=== PATIENT | male | born 1980 | race Caucasian/White ===

== ENCOUNTER → 2017-01-01 | Outpatient (CLI) | payer OTHER ==
[2017-01-01 10:10] LABS: Basophils # (A) 0.1 k/uL (0-0.2); Basophils % (A) 1 %; CH 30.8; CHCM 33.2; Eosinophils # (A) 0.3 k/uL (0-0.7); Eosinophils % (A) 3 %; HCT 47.2 % (39.0-53.0); HDW 2.38; HGB 15.7 gm/dL (13.0-17.5); Luc # (Auto) 0.19; Luc % (Auto) 2; Lymphocytes # (A) 2.2 k/uL (1.0-4.8); Lymphocytes % (A) 23 %; MCHC 33.2 g/dL (31.0-37.0); MCV 93.3 fL (80.0-100.0); Monocytes # (A) 0.6 k/uL (0-1.0); Monocytes % (A) 6 %; Neutrophils # (A) 6.3 k/uL (1.3-7.7); Neutrophils % (A) 66 %; RBC 5.06 m/uL (4.30-5.90); RDW 12.5 % (11.5-15.5); WBC 9.6 k/uL (3.8-10.6)
[2017-01-01 10:13] LABS: ALT 40 U/L (21-72); AST 12 U/L (17-59); Alkaline Phosphatase 84 U/L (38-126); Anion Gap 10 mmol/L; Blood Urea Nitrogen 8 mg/dL (9-20); C Reactive Protein 7.7 mg/L (<10.0); Carbon Dioxide 28 mmol/L (22-30); Chloride 107 mmol/L (98-107); Glucose 100 mg/dL (74-99); Iron 87 ug/dL (49-181); Non-African American GFR(MDRD) >60 (>60 ml/min/1.73 sqM); Potassium 3.7 mmol/L (3.5-5.1); Sodium 145 mmol/L (137-145); Total Bilirubin 0.5 mg/dL (0.2-1.3); Total Protein 7.4 g/dL (6.3-8.2)
[2017-01-01 10:21] LABS: % Iron Saturation 29.8 % (20-50); Rheumatoid Factor, Qnt <9 IU/mL (<12); Total Iron Binding Capacity 292 ug/dL (261-462)
[2017-01-01 11:04] LABS: Vitamin B12 420 pg/mL (239-931)
[2017-01-01 11:59] LABS: Erythrocyte Sedimentation Rate 2 mm/hr (0-15)
[2017-01-01 18:01] LABS: ANA w/Reflex to Titer NEGATIVE (NEGATIVE)
== END | disposition home or self-care (01) ==
LOC: LABWHC1 09:40
PROVIDERS: ATTEND Nurse Practitioner Acute Care
DX: E55.9 Vitamin D deficiency, unspecified (principal); M35.3 Polymyalgia rheumatica
CPT/HCPCS: 36415; 80053; 82306; 82607; 82728; 83540; 83550; 84439; 84443; 84481; 85025; 85652; 86038; 86140; 86431

== ENCOUNTER 2017-04-18 20:42 | Emergency (ER) | payer OTHER ==
[2017-04-18 20:49] VITALS: BP 138/80; PULSE 98; RESP 18; TEMP 97.9
[2017-04-18] MEDS ORDERED: MORPHINE SULFATE 10 MG/ML SYRINGE IM STA (21:03)
[2017-04-18] MEDS ORDERED: KETOROLAC 60 MG/2 ML VIAL IM STA (21:03)
[2017-04-18] MEDS ORDERED: ONDANSETRON ODT 4 MG TAB PO STA (21:08)
[2017-04-18] MEDS ORDERED: HYDROcodone/APAP 10-325MG 1 EACH TAB PO ONE (21:43)
--- NOTE | 2017-04-18 21:46 | XR ---
EXAMINATION TYPE: XR finger LT DATE OF EXAM: 04/18/2017 COMPARISON: NONE HISTORY: Injury TECHNIQUE: 3 views FINDINGS: There is a posterior dislocation of the PIP joint of the little finger left hand. I see no fracture. IMPRESSION: Posterior dislocation of the PIP joint of the little finger.
--- NOTE | 2017-04-18 21:58 | XR ---
EXAMINATION TYPE: XR finger LT DATE OF EXAM: 04/18/2017 COMPARISON: Today HISTORY: Post reduction TECHNIQUE: 3 views FINDINGS: There is anatomic reduction of the PIP joint. Lateral view is obscured by the other fingers . I see no fracture line. IMPRESSION: Anatomic reduction. No fracture seen.
--- NOTE | 2017-04-18 22:01 | ED ---
Upper Extremity HPI - General Chief Complaint: Extremity Injury, Upper Stated Complaint: finger injury Time Seen by Provider: 04/18/17 21:00 Source: patient Mode of arrival: ambulatory Limitations: no limitations - History of Present Illness Initial Comments: Patient complains of injury to the left small finger. He was playing sports. He jammed the finger. It is painful. The pain does not radiate anywhere. It is worse with movement. He denies any numbness or tingling. He denies other injuries. - Related Data Home Medications Medication Instructions Recorded Confirmed Butalb/APAP/Caff 50-325-40Mg 1 tab PO BID PRN 04/18/17 04/18/17 [Fioricet 50-325-40] Ergocalciferol [Vitamin D2] 50,000 unit PO ANGEL 04/18/17 04/18/17 HYDROcodone/APAP 7.5-325MG [[place] 1 tab PO BID 04/18/17 04/18/17 7.5-325] Omeprazole Magnesium [Prilosec OTC] 20 mg PO DAILY 04/18/17 04/18/17 Zonisamide [Zonegran] 200 mg PO HS 04/18/17 04/18/17 tiZANidine [Zanaflex] 4 mg PO BID 04/18/17 04/18/17 Allergies Allergy/AdvReac Type Severity Reaction Status Date / Time No Known Allergies Allergy Verified 04/18/17 20:48 Review of Systems ROS Statement: Those systems with pertinent positive or pertinent negative responses have been documented in the HPI. ROS Other: All systems not noted in ROS Statement are negative. Past Medical History Past Medical History: No Reported History Additional Past Medical History / Comment(s): Herniated cervical discs History of Any Multi-Drug Resistant Organisms: None Reported Past Surgical History: No Surgical Hx Reported Past Psychological History: Anxiety Smoking Status: Current every day smoker Past Alcohol Use History: Rare Past Drug Use History: None Reported General Exam Limitations: no limitations General appearance: alert Respiratory exam: Absent: accessory muscle use Extremities exam: Present: other (Tenderness and deformity to the left small finger) Course Vital Signs 04/18/17 20:45 Temperature 97.9 F Pulse Rate 98 Respiratory 18 Rate Blood Pressure 138/80 O2 Sat by Pulse 100 Oximetry Medical Decision Making - Medical Decision Making Patient complains of injury to left small finger. His capillary refill is less than 2 seconds. X-rays reveal a proximal dislocation. Patient was given 60 mg IM Toradol and 6 mg IM morphine. I reduced the finger with no complication. Postprocedure films revealed the year to be in good position. Patient tolerated the procedure well. He remains neurovascularly intact distal to injury site. He is stable for discharge. Disposition Clinical Impression: Finger sprain Disposition: HOME SELF-CARE Condition: Good Instructions: Finger Dislocation (ED) Referrals: Myron Billings MD [Primary Care Provider] - 1-2 days Time of Disposition: 22:01
== END 2017-04-18 22:35 | disposition home or self-care (01) ==
LOC: EC 20:42
DX: S63.617A Unspecified sprain of left little finger, initial encounter (principal); S63.287A Dislocation of proximal interphalangeal joint of left little finger, initial encounter; X58.XXXA Exposure to other specified factors, initial encounter; Y93.67 Activity, basketball
CPT/HCPCS: 99283; 96372 ×2; 73140; J2270; J1885

== ENCOUNTER 2017-11-29 08:20 | Observation (INO) | payer OTHER ==
[2017-11-29] MEDS ORDERED: SODIUM CHLORIDE 0.9% 500 ML IV STA (08:54)
[2017-11-29] MEDS ORDERED: SODIUM CHLORIDE 0.9% 1,000 ML IV STA (08:54)
--- NOTE | 2017-11-29 09:04 | ED ---
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 He does have a headache denies any chest pain feels very weak denies any shortness of breath denies any abdominal pain just generalized weakness affect her symptoms of TIA or CVA - Related Data Home Medications Medication Instructions Recorded Confirmed Butalb/APAP/Caff 50-325-40Mg 1 tab PO BID PRN 04/18/17 11/29/17 [Fioricet 50-325-40] Zonisamide [Zonegran] 200 mg PO HS 04/18/17 11/29/17 tiZANidine [Zanaflex] 4 mg PO BID 04/18/17 11/29/17 Acetaminophen Tab [Tylenol Tab] 500 mg PO Q6H PRN 11/29/17 11/29/17 Ibuprofen [Motrin Ib] 200 mg PO Q6H PRN 11/29/17 11/29/17 Ranitidine HCl [Zantac] 150 mg PO BID 11/29/17 11/29/17 diphenhydrAMINE [Benadryl] 25 mg PO QID PRN 11/29/17 11/29/17 oxyCODONE HCL/ACETAMINOPHEN 1 tab PO BID PRN 11/29/17 11/29/17 [Percocet 7.5-325 mg] Allergies Allergy/AdvReac Type Severity Reaction Status Date / Time No Known Allergies Allergy Verified 11/29/17 08:44 Review of Systems ROS Statement: Those systems with pertinent positive or pertinent negative responses have been documented in the HPI. ROS Other: All systems not noted in ROS Statement are negative. Past Medical History Past Medical History: No Reported History Additional Past Medical History / Comment(s): Herniated cervical discs History of Any Multi-Drug Resistant Organisms: None Reported Past Surgical History: No Surgical Hx Reported Past Psychological History: Anxiety, Depression Smoking Status: Current every day smoker Past Alcohol Use History: Rare Past Drug Use History: None Reported General Exam - General Exam Comments Initial Comments: General: The patient is barely awake, is following the commands look very pale and tired and does close his eyes even during the conversation Skin: Skin is warm and dry and no rashes or lesions are noted. Eye: Pupils are equal, round and reactive to light, extra-ocular movements are intact; there is normal conjunctiva bilaterally. Ears, nose, mouth and throat: His membranes are very dry and looks quite dehydrated Neck: The neck is supple, there is no tenderness Cardiovascular: There is a regular rate and rhythm. No murmur, rub or gallop is appreciated. Respiratory: To auscultation bilateral, crease breath sounds lateral Gastrointestinal: Soft, non-distended, guarding no rebounds positive bowel sounds Back: There is no tenderness to palpation in the midline. There is no obvious deformity. Musculoskeletal: Normal ROM, no tenderness, There is no pedal edema. There is no calf tenderness or swelling. No cords were appreciated. Neurological: CN II-XII intact, Cranial nerves III through XII are intact. There are no obvious motor or sensory deficits. Coordination appears grossly intact. Speech is normal. Psychiatric: Cooperative, does follow commands very slow very lethargic and slow in following the commands Course Vital Signs 11/29/17 11/29/17 11/29/17 08:22 09:19 10:26 Temperature 97.0 F L Pulse Rate 62 73 72 Respiratory 17 18 16 Rate Blood Pressure 117/75 124/88 113/74 O2 Sat by Pulse 100 100 98 Oximetry - Reevaluation(s) Reevaluation #1: Patient is reassessed at 11:15, still he is still very sleepy does wake up and answer questions but the family said it's a significant change in the mental status e CBC, INR, troponin, comprehensive metabolic panel, urinalysis, head CT , chest x-ray are normal and centering is a change in mental status with the normal labs and imaging I plan to admit him for his family agrees with that he be admitted to Dr. Desir service 11/29/17 11:16 EKG Findings - EKG Comments: EKG Findings:: EKG is normal sinus rhythm ventricular rate is 62 MA interval is 162 QRS duration is 86 QT/QTc is 410/416 review of this EKG does not reveal any ST elevation or ST depression Medical Decision Making - Lab Data Result diagrams: 11/29/17 09:15 11/29/17 09:15 Lab Results 11/29/17 11/29/17 11/29/17 Range/Units 09:15 09:15 09:15 WBC 8.6 (3.8-10.6) k/uL RBC 4.99 (4.30-5.90) m/uL Hgb 15.0 (13.0-17.5) gm/dL Hct 46.0 (39.0-53.0) % MCV 92.0 (80.0-100.0) fL MCH 30.1 (25.0-35.0) pg MCHC 32.7 (31.0-37.0) g/dL RDW 12.8 (11.5-15.5) % Plt Count 194 (150-450) k/uL Neutrophils % 58 % Lymphocytes % 30 % Monocytes % 6 % Eosinophils % 4 % Basophils % 1 % Neutrophils # 5.0 (1.3-7.7) k/uL Lymphocytes # 2.6 (1.0-4.8) k/uL Monocytes # 0.5 (0-1.0) k/uL Eosinophils # 0.3 (0-0.7) k/uL Basophils # 0.1 (0-0.2) k/uL PT (9.0-12.0) sec INR (<1.2) APTT (22.0-30.0) sec Sodium 143 (137-145) mmol/L Potassium 3.8 (3.5-5.1) mmol/L Chloride 107 (98-107) mmol/L Carbon Dioxide 28 (22-30) mmol/L Anion Gap 8 mmol/L BUN 13 (9-20) mg/dL Creatinine 0.94 (0.66-1.25) mg/dL Est GFR (MDRD) Af Amer >60 (>60 ml/min/1.73 sqM) Est GFR (MDRD) Non-Af >60 (>60 ml/min/1.73 sqM) Glucose 83 (74-99) mg/dL Plasma Lactic Acid Jeff (0.7-2.0) mmol/L Calcium 9.3 (8.4-10.2) mg/dL Phosphorus 3.6 (2.5-4.5) mg/dL Magnesium 2.2 (1.6-2.3) mg/dL Total Bilirubin 0.2 (0.2-1.3) mg/dL AST 9 L (17-59) U/L ALT 21 (21-72) U/L Alkaline Phosphatase 85 (38-126) U/L Total Creatine Kinase 52 L (55-170) U/L CK-MB (CK-2) 0.5 (0.0-2.4) ng/mL CK-MB (CK-2) Rel Index 1.0 Troponin I <0.012 (0.000-0.034) ng/mL Total Protein 6.3 (6.3-8.2) g/dL Albumin 3.9 (3.5-5.0) g/dL TSH 0.801 (0.465-4.680) mIU/L Urine Color Urine Appearance (Clear) Urine pH (5.0-8.0) Ur Specific [place] (1.001-1.035) Urine Protein (Negative) Urine Glucose (UA) (Negative) Urine Ketones (Negative) Urine Blood (Negative) Urine Nitrite (Negative) Urine Bilirubin (Negative) Urine Urobilinogen (<2.0) mg/dL Ur Leukocyte Esterase (Negative) 11/29/17 11/29/17 11/29/17 Range/Units 09:15 09:15 10:46 WBC (3.8-10.6) k/uL RBC (4.30-5.90) m/uL Hgb (13.0-17.5) gm/dL Hct (39.0-53.0) % MCV (80.0-100.0) fL MCH (25.0-35.0) pg MCHC (31.0-37.0) g/dL RDW (11.5-15.5) % Plt Count (150-450) k/uL Neutrophils % % Lymphocytes % % Monocytes % % Eosinophils % % Basophils % % Neutrophils # (1.3-7.7) k/uL Lymphocytes # (1.0-4.8) k/uL Monocytes # (0-1.0) k/uL Eosinophils # (0-0.7) k/uL Basophils # (0-0.2) k/uL PT 9.8 (9.0-12.0) sec INR 1.0 (<1.2) APTT 24.4 (22.0-30.0) sec Sodium (137-145) mmol/L Potassium (3.5-5.1) mmol/L Chloride (98-107) mmol/L Carbon Dioxide (22-30) mmol/L Anion Gap mmol/L BUN (9-20) mg/dL Creatinine (0.66-1.25) mg/dL Est GFR (MDRD) Af Amer (>60 ml/min/1.73 sqM) Est GFR (MDRD) Non-Af (>60 ml/min/1.73 sqM) Glucose (74-99) mg/dL Plasma Lactic Acid Jeff 0.9 (0.7-2.0) mmol/L Calcium (8.4-10.2) mg/dL Phosphorus (2.5-4.5) mg/dL Magnesium (1.6-2.3) mg/dL Total Bilirubin (0.2-1.3) mg/dL AST (17-59) U/L ALT (21-72) U/L Alkaline Phosphatase (38-126) U/L Total Creatine Kinase (55-170) U/L CK-MB (CK-2) (0.0-2.4) ng/mL CK-MB (CK-2) Rel Index Troponin I (0.000-0.034) ng/mL Total Protein (6.3-8.2) g/dL Albumin (3.5-5.0) g/dL TSH (0.465-4.680) mIU/L Urine Color Yellow Urine Appearance Clear (Clear) Urine pH 6.0 (5.0-8.0) Ur Specific [place] 1.020 (1.001-1.035) Urine Protein Negative (Negative) Urine Glucose (UA) Negative (Negative) Urine Ketones Negative (Negative) Urine Blood Negative (Negative) Urine Nitrite Negative (Negative) Urine Bilirubin Negative (Negative) Urine Urobilinogen <2.0 (<2.0) mg/dL Ur Leukocyte Esterase Negative (Negative) Disposition Clinical Impression: Change in mental status, Lethargy Disposition: ADMITTED IP TO THIS HOSP Condition: Good Referrals: Myron Billings MD [Primary Care Provider] - 1-2 days
[2017-11-29 09:30] LABS: Basophils # (A) 0.1 k/uL (0-0.2); Basophils % (A) 1 %; Eosinophils # (A) 0.3 k/uL (0-0.7); Eosinophils % (A) 4 %; Lymphocytes # (A) 2.6 k/uL (1.0-4.8); Lymphocytes % (A) 30 %; MCH 30.1 pg (25.0-35.0); MCHC 32.7 g/dL (31.0-37.0); Mean Platelet Volume 7.3; Monocytes # (A) 0.5 k/uL (0-1.0); Monocytes % (A) 6 %; Neutrophils % (A) 58 %; Platelet Count 194 k/uL (150-450); RBC 4.99 m/uL (4.30-5.90); RDW 12.8 % (11.5-15.5); WBC 8.6 k/uL (3.8-10.6)
[2017-11-29 09:39] LABS: Partial Thromboplastin Time 24.4 sec (22.0-30.0); Prothrombin Time 9.8 sec (9.0-12.0)
[2017-11-29 09:50] LABS: ALT 21 U/L (21-72); AST 9 U/L (17-59); Albumin 3.9 g/dL (3.5-5.0); Alkaline Phosphatase 85 U/L (38-126); Anion Gap 8 mmol/L; Blood Urea Nitrogen 13 mg/dL (9-20); Calcium 9.3 mg/dL (8.4-10.2); Carbon Dioxide 28 mmol/L (22-30); Chloride 107 mmol/L (98-107); Glucose 83 mg/dL (74-99); Magnesium 2.2 mg/dL (1.6-2.3); Phosphorus 3.6 mg/dL (2.5-4.5); Potassium 3.8 mmol/L (3.5-5.1); Sodium 143 mmol/L (137-145); Total Bilirubin 0.2 mg/dL (0.2-1.3); Total Protein 6.3 g/dL (6.3-8.2)
--- NOTE | 2017-11-29 09:53 | XR ---
EXAMINATION TYPE: XR chest 2V DATE OF EXAM: 11/29/2017 COMPARISON: NONE HISTORY: Chest pain TECHNIQUE: Frontal and lateral views of the chest are obtained. FINDINGS: There is no focal air space opacity. No evidence for pneumothorax. No pleural effusion. The cardiac silhouette size is within normal limits. The osseous structures are grossly intact. IMPRESSION: 1. No acute cardiopulmonary process.
[2017-11-29 10:00] LABS: Creatine Kinase 52 U/L (55-170)
[2017-11-29 10:12] LABS: Creatine Kinase MB 0.5 ng/mL (0.0-2.4); Troponin I <0.012 ng/mL (0.000-0.034)
--- NOTE | 2017-11-29 10:22 | CT ---
EXAMINATION TYPE: CT brain wo con DATE OF EXAM: 11/29/2017 COMPARISON: NONE HISTORY: Right sided weakness and confusion CT DLP: 1090.4 mGycm. Automated Exposure Control for Dose Reduction was Utilized. TECHNIQUE: CT scan of the head is performed without contrast. FINDINGS: There is no acute intracranial hemorrhage, mass effect, or midline shift identified. The ventricles and sulci are within normal limits in size. The globes are intact and the visualized sin uses are clear. IMPRESSION: No acute intracranial hemorrhage, mass effect, or midline shift is seen.
[2017-11-29 11:02] LABS: Appearance,Urine Clear (Clear); Bilirubin,Urine Negative (Negative); Blood,Urine Negative (Negative); Color,Urine Yellow; Glucose,Urine (UA) Negative (Negative); Ketones,Urine Negative (Negative); Leukocyte Esterase,Urine Negative (Negative); Nitrite,Urine Negative (Negative); Protein,Urine Negative (Negative); Urobilinogen,Urine <2.0 mg/dL (<2.0)
[2017-11-29] MEDS ORDERED: NALOXONE 0.4 MG/ML 1 ML VIAL IV PRN (11:21)
[2017-11-29 11:40] LABS: Amphetamine Screen,Urine Not Detected (NotDetected); Barbiturate Screen,Urine Detected (NotDetected); Benzodiazepines Screen,Urine Detected (NotDetected); Cocaine Screen,Urine Not Detected (NotDetected); Methadone Screen, Urine Not Detected (NotDetected); Opiate Screen,Urine Detected (NotDetected); Phencyclidine Screen,Urine Not Detected (NotDetected); Tricyclic Antidepressant,Urine Not Detected (NotDetected); Urn Cannabinoid Scrn Not Detected (NotDetected)
[2017-11-29 11:41] LABS: Oxycodone Screen, Urine Detected (NotDetected)
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
[2017-11-29] MEDS: NICOTINE 21MG/24HR PATCH TRANSDERM SCH (16:15)
[2017-11-29] MEDS ORDERED: ACETAMINOPHEN TAB 500 MG TAB PO PRN (19:57)
[2017-11-29] MEDS ORDERED: IBUPROFEN 200 MG TAB PO PRN (19:57)
[2017-11-29] MEDS ORDERED: BUTALB/APAP/CAFF 50-325-40MG TAB PO PRN (19:57)
[2017-11-29] MEDS: oxyCODONE-APAP 7.5-325MG 1 EACH TAB PO PRN (20:27)
[2017-11-29] MEDS: tiZANidine 4 MG TAB PO SCH (20:28)
[2017-11-29] MEDS: FAMOTIDINE 20 MG TAB PO SCH (20:28)
[2017-11-29] MEDS ORDERED: ZONISAMIDE 100 MG CAP PO SCH (21:00)
[2017-11-30 01:11] VITALS: RESP 16
--- NOTE | 2017-11-30 08:28 | CONS ---
CONSULTATION DATE OF CONSULTATION: 11/29/2017 CHIEF COMPLAINT: Altered mental status. HISTORY OF PRESENT ILLNESS: The patient is a pleasant 37-year-old, male, who is being evaluated today on 11/29/2017 by the neurology service per the request of Dr. Tillman for altered mental status. The patient was brought into [facility] Emergency Room after his significant other noticed him to be less arousable. The patient has a history of chronic pain syndrome including chronic neck pain and shoulder pain. He has history of cervical facet joint arthropathy. He was recently seen in the office for a shoulder injection. The patient is maintained on Percocet 7.5 mg b.i.d. p.r.n. No seizure-like activity was described at home and he did not have any loss of consciousness. In the emergency room, a CT scan of the brain was done, which was normal. A chest x-ray, showed no abnormalities. His CBC, comprehensive metabolic profile, cardiac enzymes and urinalysis were normal. His urine drug screen was positive for oxycodone and barbiturates, which are explained by his home medications, but the test was also positive for opiates and marijuana. The patient denies any marijuana use and denies taking any opiate drugs. The patient was admitted for further workup and management. At the time of my evaluation, he is quite awake and is back to his baseline. He denies any new neurological complaints. PAST MEDICAL HISTORY: Chronic pain syndrome, shoulder arthritis, cervical facet joint arthropathy, depression, anxiety disorder. SOCIAL HISTORY: The patient is a current every day smoker. He denies any drug use. He rarely drinks alcohol. FAMILY HISTORY: Noncontributory. HOME MEDICATIONS: Reviewed in the chart. ALLERGIES: No known drug allergies. REVIEW OF SYSTEMS: As mentioned above and otherwise negative. PHYSICAL EXAM: Vital signs show a temperature of 97, pulse 56, respiration 16, blood pressure 109/64. GENERAL APPEARANCE: The patient is a thin male, who appears to be in no acute distress. HEENT: Normocephalic, atraumatic, exotropia is present in the right eye which is chronic. No facial asymmetry is seen. Neck is supple with no masses felt. CARDIOVASCULAR: Bradycardic rate with normal rhythm. ABDOMEN: Nontender, nondistended. Extremities showed no edema or clubbing. NEUROLOGICAL EXAM: The patient is alert, aware and oriented x3. Speech and language are normal. Strength is full in all 4 extremities, but the left upper extremity exam was slightly limited due to shoulder pain. Sensory exam was normal to light touch in all 4 extremities. No tremors or seizure-like activity is seen. No facial asymmetry is noticed on cranial nerve testing. IMPRESSION: 1. Altered mental status. 2. Toxic encephalopathy. 3. Chronic pain syndrome. RECOMMENDATION: The patient's mental status changes have completely resolved and he is at his baseline at this time. The patient's urine drug screen was not consistent with his prescribed medications although the patient denies using any marijuana and denies taking any opiate drugs. He is on butalbital for headaches as needed and Percocet 7.5 mg b.i.d. p.r.n. for his chronic pain at home. An EEG has been ordered. I will order a serum drug screen to confirm the urine drug screen results. Continue neuro checks. I will continue to follow with you. Further recommendations to follow. Thank you for allowing me to participate in the care of your patient. If you have any questions, please feel free to contact me. KHADIJAH / ADAN: [phone] /
[2017-11-30] MEDS ORDERED: ENOXAPARIN 40 MG/0.4 ML SYRINGE SQ SCH ×2 (09:00)
[2017-11-30] MEDS: oxyCODONE-APAP 7.5-325MG 1 EACH TAB PO PRN (09:02)
[2017-11-30] MEDS: NICOTINE 21MG/24HR PATCH TRANSDERM SCH (09:03)
[2017-11-30] MEDS: FAMOTIDINE 20 MG TAB PO SCH (09:03)
[2017-11-30] MEDS: tiZANidine 4 MG TAB PO SCH (09:03)
[2017-11-30 12:23] VITALS: BP 109/75; PULSE 69; TEMP 98.2
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
--- NOTE | 2017-11-30 15:58 | P.PN ---
Subjective Progress Note Date: 11/30/17 Principal diagnosis: Altered mental status This is a 37-year-old male continuing be evaluated by the neurology service for altered mental status. He was brought to [facility] emergency room after being found quite drowsy by his significant other. He is known to our practice with history of chronic pain syndrome including chronic neck and shoulder pain. His chronic pain medication includes Percocet 7.5/325 mg twice daily as needed. There was no seizure activity noted. There was no loss of consciousness. CT of the brain was done and was normal. His urine drug screen was positive for oxycodone which is consistent with the medication. However was also positive for opiates, which is a separate test from oxycodone. There was also positive for benzodiazepines. Reaction to the previous note it was not positive for marijuana. At the time my evaluation he is sitting up in his bedside dressed in his street clothes waiting for discharge. An EEG has just been performed. He denies any new neurological symptoms. Objective - Vital Signs Vital signs: Vital Signs Temp 98.2 F 11/30/17 12:00 Pulse 69 11/30/17 12:00 Resp 16 11/30/17 12:00 BP 109/75 11/30/17 12:00 Pulse Ox 100 11/30/17 12:00 Intake & Output 11/29/17 11/30/17 11/30/17 18:59 06:59 18:59 Intake Total 2000 500 Balance 2000 500 Weight 83.915 kg Intake: Intake, IV Titration 900 Amount Sodium Chloride 0.9% 1, 900 000 ml @ 100 mls/hr IV . Q10H STA Rx#:[id number] Oral 1100 500 Other: Voiding Method Toilet # Voids 2 2 - Constitutional General appearance: Present: average body habitus, cooperative. Absent: no acute distress - EENT Eyes: Present: abnormal pupil, PERRLA. Absent: ptosis ENT: Present: hearing grossly normal - Neck Neck: Present: normal ROM. Absent: rigidity - Respiratory Respiratory: negative: prolonged expiration, prolonged inspiration - Cardiovascular Rhythm: regular - Gastrointestinal General gastrointestinal: Absent: distended, tenderness - Neurologic Neurologic Comment(s): Patient was awake alert and oriented 3. Speech and language are normal. There is no facial asymmetry. There is no lateralizing weakness. No tremors or seizure-like activities are seen. - Labs CBC & Chem 7: 11/29/17 09:15 11/29/17 09:15 Labs: Microbiology - Last 24 Hours (Table) 11/29/17 09:15 Blood Culture - Preliminary Blood No Growth after 24 hours Assessment and Plan (1) Chronic pain syndrome Current Visit: Yes Status: Chronic Code(s): G89.4 - CHRONIC PAIN SYNDROME SNOMED Code(s): 773251719 (2) Abnormal drug screen Current Visit: Yes Status: Acute Code(s): R89.2 - ABN LEV DRUG/MEDS/BIOL SUBST IN SPECIMENS FROM OTH ORG/TISS SNOMED Code(s): 091405377 (3) Change in mental status Current Visit: Yes Status: Resolved Code(s): R41.82 - ALTERED MENTAL STATUS , UNSPECIFIED SNOMED Code(s): 456723593 (4) Lethargy Current Visit: Yes Status: Resolved Code(s): R53.83 - OTHER FATIGUE SNOMED Code(s): 057104673 Plan: The patient's mental status changes have resolved. His symptoms were likely due to medication overuse. He has been strongly cautioned. We will see him in the office to discuss further treatment plan. At that time we'll go over his EEG results also. Otherwise she is cleared from a neurological standpoint. I have performed a history and physical on the above patient. I have reviewed the above note, and agree.
--- NOTE | 2017-12-05 19:10 | EEG ---
ELECTROENCEPHALOGRAM REPORT DATE OF SERVICE: 11/30/2017 REASON FOR TESTING: Altered mental status. DESCRIPTION OF THE PROCEDURE: This EEG was performed using a 21 channel digital electroencephalograph, following international 10-20 system. DESCRIPTION OF THE RECORDING: From the beginning of the tracing, with patient's eyes closed, the background rhythm was mostly consisting of 9 Hz alpha frequency in the posterior occipital leads. No obvious asymmetry is seen. Occasional movement artifacts are noticed. Hyperventilation was performed with a mild buildup of amplitude seen. No pathological waves were elicited. Photic stimulation was performed with no driving response seen. Again, no pathological waves were elicited. The patient remains awake throughout the tracing. No epileptiform discharges were seen. His EKG lead showed a regular rate and rhythm. INTERPRETATION: This awake EEG can be considered within normal limits. There was no asymmetry seen. No epileptiform discharges were noticed. The absence of epileptiform discharges does not rule out the diagnosis of epilepsy, therefore clinical correlation is recommended. MMODL / IJN: [id number] /
== END 2017-11-30 15:42 | disposition home or self-care (01) ==
LOC: EC 08:20 → 3OBS 11:21
PROVIDERS: ADMIT Internal Medicine Geriatric Medicine; ATTEND Internal Medicine Geriatric Medicine
DX: G92 Toxic encephalopathy (principal); T40.605A Adverse effect of unspecified narcotics, initial encounter; G89.4 Chronic pain syndrome; M54.5 Low back pain; F17.210 Nicotine dependence, cigarettes, uncomplicated; F41.1 Generalized anxiety disorder; F33.9 Major depressive disorder, recurrent, unspecified; K21.9 Gastro-esophageal reflux disease without esophagitis; G43.909 Migraine, unspecified, not intractable, without status migrainosus; M50.20 Other cervical disc displacement, unspecified cervical region; M19.019 Primary osteoarthritis, unspecified shoulder; M25.511 Pain in right shoulder; Z79.899 Other long term (current) drug therapy
CPT/HCPCS: 99285; 96360 ×2; 96361 ×3; 36415; 95819; 93005; 80053; 82550; 82553; 83605; 83735; 84100; 84443; 84484; 85025; 85610; 85730; 81003; 87040; 80307; 80306; 71046; 70450; G0378 ×2; S4990 ×2

== ENCOUNTER → 2018-05-31 | Outpatient (CLI) | payer OTHER ==
--- NOTE | 2018-05-31 16:02 | MR ---
EXAMINATION TYPE: MR lumbar spine wo con DATE OF EXAM: 05/31/2018 COMPARISON: NONE HISTORY: Low back pain TECHNIQUE: T1 and T2 axial and sagittal images of the lumbar spine are submitted. FINDINGS: There is no abnormal signal seen within the visualized spinal cord or paraspinal soft tissu es. At L1-2 there is no disc herniation or canal stenosis. No foraminal encroachment. No degenerative dis c disease. At L2-3 there is no degenerative disc disease, disc herniation, canal stenosis, or foraminal encroach ment. At L3-4 there is mild disc desiccation. There is hypertrophic change of the facets greater on the lef t. There is no foraminal encroachment or canal stenosis. At L4-5 there is no degenerative disc disease, disc herniation or canal stenosis. There is moderate f acet arthropathy. Neural foramina remain patent. At L5-S1 there is no degenerative disc disease, canal stenosis, or focal herniation. No foraminal enc roachment. IMPRESSION: 1. Multilevel facet arthropathy with mild degenerative disc disease L3-L4. No disc herniation, canal stenosis, or foraminal encroachment at any of the visualized levels.
== END | disposition home or self-care (01) ==
LOC: RADMRIMAIN 15:24
PROVIDERS: ATTEND Psychiatry & Neurology Neurology
DX: M51.36 Other intervertebral disc degeneration, lumbar region (principal); M48.8X6 Other specified spondylopathies, lumbar region
CPT/HCPCS: 72148

== ENCOUNTER 2018-08-13 20:47 | Emergency (ER) | payer OTHER ==
[2018-08-13 21:10] VITALS: BP 137/88; PULSE 70; RESP 16; TEMP 98.1
--- NOTE | 2018-08-13 21:51 | XR ---
EXAMINATION TYPE: XR hand complete LT DATE OF EXAM: 08/13/2018 CLINICAL HISTORY: Left hand pain and swelling after falling injury. TECHNIQUE: Frontal, lateral and oblique images of the left hand are obtained. COMPARISON: None. FINDINGS: There is no acute fracture/dislocation evident in the left hand. The joint spaces in the l eft hand appear within normal limits. Sclerotic focus distal ulna favors benign bone island. The over lying soft tissue appears unremarkable. IMPRESSION: There is no acute fracture or dislocation in the left hand.
--- NOTE | 2018-08-13 22:24 | ED ---
Upper Extremity HPI - General Source: patient Mode of arrival: ambulatory Limitations: no limitations <Lisbeth Negrete - Last Filed: 08/13/18 23:30> <Vani Whalen - Last Filed: 08/14/18 03:03> - General Chief Complaint: Extremity Injury, Upper Stated Complaint: left hand injury Time Seen by Provider: 08/13/18 21:47 - History of Present Illness Initial Comments: This a 38, past medical history of previous left hand fracture presents today for chief complaint of left hand pain. Patient states that he was wrestling with his son when he fell on outstretched left hand. Patient was pain in the hand lesion. Patient stable this morning it was swollen bruise. Patient was concerned about fracture presents to emergency department for evaluation. Patient denies any numbness, tingling, loss sensation, head injury, injury to any other extremity. Patient is able to fully range at the wrist. Patient denies any decreased range of motion of the fingers. Patient denies any injury to the forearm, elbow or shoulder of the left upper extremity. Remainder of ROS negative, patient denies any recent fever, chills, shortness of breath, chest pain, back pain, abdominal pain, nausea or vomiting, numbness or tingling , dysuria or hematuria, constipation or diarrhea, headaches or visual changes, or any other complaints. Upon arrival patient appears well. Patient denies taking medication prior to arrival. Patient denies any known ALLERGIES. (Lisbeth Negrete) - Related Data Home Medications Medication Instructions Recorded Confirmed Butalb/APAP/Caff 50-325-40Mg 1 tab PO BID PRN 04/18/17 11/29/17 [Fioricet 50-325-40] Zonisamide [Zonegran] 200 mg PO HS 04/18/17 11/29/17 tiZANidine [Zanaflex] 4 mg PO BID 04/18/17 11/29/17 Acetaminophen Tab [Tylenol] 500 mg PO Q6H PRN 11/29/17 11/29/17 Ibuprofen [Motrin Ib] 200 mg PO Q6H PRN 11/29/17 11/29/17 Ranitidine HCl [Zantac] 150 mg PO BID 11/29/17 11/29/17 oxyCODONE HCL/ACETAMINOPHEN 1 tab PO BID PRN 11/29/17 11/29/17 [Percocet 7.5-325 mg] Allergies Allergy/AdvReac Type Severity Reaction Status Date / Time No Known Allergies Allergy Verified 08/13/18 21:10 Review of Systems ROS Other: All systems not noted in ROS Statement are negative. Constitutional: Denies: fever, chills Eyes: Denies: eye pain ENT: Denies: ear pain, throat pain Respiratory: Denies: cough, dyspnea Cardiovascular: Denies: chest pain, palpitations Endocrine: Denies: fatigue Gastrointestinal: Denies: abdominal pain, nausea, vomiting Genitourinary: Denies: urgency, dysuria Musculoskeletal: Reports: joint swelling (Swelling of the dorsal aspect of the left hand), arthralgia (Pain in the dorsum of the left hand) Skin: Reports: change in color (Bruising of the left hand). Denies: rash, lesions Neurological: Denies: headache, weakness, numbness, paresthesias, confusion, abnormal gait <Lisbeth Negrete L - Last Filed: 08/13/18 23:30> ROS Other: All systems not noted in ROS Statement are negative. <Vani Whalen - Last Filed: 08/14/18 03:03> ROS Statement: Those systems with pertinent positive or pertinent negative responses have been documented in the HPI. Past Medical History Past Medical History: No Reported History Additional Past Medical History / Comment(s): Herniated cervical discs History of Any Multi-Drug Resistant Organisms: None Reported Past Surgical History: No Surgical Hx Reported Additional Past Surgical History / Comment(s): Nerve block cervical spine, lazy eye surgery on the left Past Anesthesia/Blood Transfusion Reactions: Motion Sickness Past Psychological History: Anxiety Smoking Status: Current every day smoker Past Alcohol Use History: Rare Past Drug Use History: None Reported - Past Family History Father Family Medical History: No Reported History Additional Family Medical History / Comment(s): Patient does not know his father. Mother Family Medical History: No Reported History Additional Family Medical History / Comment(s): Mother is alive at age 52 with no major medical problems. Patient has 2 brothers with no major medical problems. Patient does not have any sisters. Patient has one son with no major medical problems. <Lisbeth Negrete - Last Filed: 08/13/18 23:30> General Exam Limitations: no limitations <Lisbeth Negrete - Last Filed: 08/13/18 23:30> <Vani Whalen P - Last Filed: 08/14/18 03:03> - General Exam Comments Initial Comments: General: The patient is awake and alert, in no distress, and does not appear acutely ill. Eye: Pupils are equal, round and reactive to light, extra-ocular movements are intact. No nystagmus. There is normal conjunctiva bilaterally. No signs of icterus. Cardiovascular: There is a regular rate and rhythm. No murmur, rub or gallop is appreciated. Respiratory: Lungs are clear to auscultation, respirations are non-labored, breath sounds are equal. No wheezes, stridor, rales, or rhonchi. Musculoskeletal: There is bruising and swelling of the left hand dorsum. Patient is able to fully range at the MCP, DIP and PIP joints of the left hand at all 5 digits. Patient is able to flex, extend and supinate and pronate at the left wrist without difficulty. Patient does admit to discomfort with range of motion of the hand. Patient admits to pain palpation over the metacarpals. Patient does have mild scaphoid tenderness. Compartments are soft and compressible, capillary refill less than 2 seconds. Sensation intact. Radial and ulnar pulses equal bilaterally 2+. Patient is able to make the okay, fingers, thumbs up and is able to extend the wrist. Ulnar, median and radial nerves intact. Neurological: A&O x 3. CN II-XII intact, There are no obvious motor or sensory deficits. Coordination appears grossly intact. Speech is normal. Skin: Skin is warm and dry and no rashes or lesions are noted. Psychiatric: Cooperative, appropriate mood & affect, normal judgment. (Lisbeth Negrete) Vital Signs 08/13/18 21:07 Temperature 98.1 F Pulse Rate 70 Respiratory 16 Rate Blood Pressure 137/88 O2 Sat by Pulse 99 Oximetry Medical Decision Making <Lisbeth Negrete - Last Filed: 08/13/18 23:30> <Vani Whalen - Last Filed: 08/14/18 03:03> - Medical Decision Making Patient given Toradol for pain management IM. X-rays appear negative for acute fracture of the left hand. Patient neurovascularly intact, compartments soft and compressible. Patient did admit to some scaphoid tenderness, concerning for possible occult fracture. This finding was discussed with patient, I stressed the importance of orthopedic surgery follow-up. Patient was placed in a thumb spica splint. Repeat neurovascular exam intact. At this time feel patient is stable for discharge with use of ibuprofen and Tylenol for pain management at home. Patient understands instruction as well as the importance of orthotics surgery follow-up. Patient was given follow-up with be associated with Dr. Pate. In addition Rice instructions were discussed in detail. Patient verbalized understanding. In addition patient verbalized understanding of return parameters. Case is discussed in detail with who agrees the impression and plan. (Lisbeth Negrete) I was available for consultation in the emergency department. The history and physical exam were done by the midlevel provider. I was consulted for this patient's care. I reviewed the case with the midlevel provider and based on their presentation of the patient, I agree with the assessment, medical decision making and plan of care as documented. (Vani Whalen) Disposition Is patient prescribed a controlled substance at d/c from ED?: No Time of Disposition: 22:23 <Lisbeth Negrete - Last Filed: 08/13/18 23:30> <Vani Whalen - Last Filed: 08/14/18 03:03> Clinical Impression: Sprain of hand, left Disposition: HOME SELF-CARE Condition: Good Instructions: Hand Sprain (ED) Additional Instructions: Please use medication as discussed. Please follow-up with orthopedic surgery in next 1-2 days, to rule out occult scaphoid fracture. Please return to emergency room if the symptoms increase or worsen or for any other concerns. Referrals: Myron Billings MD [Primary Care Provider] - 1-2 days Matt Owens DO [Doctor of Osteopathic Medicine] - 1-2 days
== END 2018-08-13 23:02 | disposition home or self-care (01) ==
LOC: EC 20:47
DX: S63.92XA Sprain of unspecified part of left wrist and hand, initial encounter (principal); M50.20 Other cervical disc displacement, unspecified cervical region; F17.200 Nicotine dependence, unspecified, uncomplicated; Z79.899 Other long term (current) drug therapy; W18.39XA Other fall on same level, initial encounter; Y93.72 Activity, wrestling
CPT/HCPCS: 29125; 99283

== ENCOUNTER 2020-05-28 23:09 | Emergency (ER) | payer OTHER ==
[2020-05-29] MEDS ORDERED: CLINDAMYCIN 150 MG CAP PO STA (00:04)
[2020-05-29] MEDS ORDERED: ACET/COD 300 MG/30 MG STARTER PACK 6 TAB BTL PO STA (00:08)
--- NOTE | 2020-05-29 00:08 | ED ---
General Adult HPI - General Chief complaint: Dental/Oral Stated complaint: Tooth pain Time Seen by Provider: 05/28/20 23:21 Source: patient, RN notes reviewed Mode of arrival: ambulatory Limitations: no limitations - History of Present Illness Initial comments: 40-year-old male presents to the emergency department for a chief complaint of dental pain. Patient reports that he has a lot of tooth problems. He reports a few days ago he bit into something and felt a crack in his tooth. States it has been worsening with pain since that time and his face is swollen. Patient has not been able to get into his dentist. He denies fevers. He has not taken anything for pain. He reports that he has been taking penicillin for about 3 days and it has not improved.Patient has no other complaints at this time including shortness of breath, chest pain, abdominal pain, nausea or vomiting, headache, or visual changes. - Related Data Home Medications Medication Instructions Recorded Confirmed Butalb/APAP/Caff 50-325-40Mg 1 tab PO BID PRN 04/18/17 05/28/20 [Fioricet 50-325-40] oxyCODONE HCL/ACETAMINOPHEN 1 tab PO BID PRN 11/29/17 05/28/20 [Percocet 7.5-325 mg] Previous Rx's Medication Instructions Recorded Clindamycin [Cleocin] 450 mg PO Q8H 7 Days #63 cap 05/29/20 Ibuprofen [Motrin] 600 mg PO Q8HR PRN #20 tab 05/29/20 Allergies Allergy/AdvReac Type Severity Reaction Status Date / Time No Known Allergies Allergy Verified 05/28/20 23:15 Review of Systems ROS Statement: Those systems with pertinent positive or pertinent negative responses have been documented in the HPI. ROS Other: All systems not noted in ROS Statement are negative. Past Medical History Past Medical History: No Reported History Additional Past Medical History / Comment(s): Herniated cervical discs History of Any Multi-Drug Resistant Organisms: None Reported Past Surgical History: No Surgical Hx Reported Additional Past Surgical History / Comment(s): Nerve block cervical spine, lazy eye surgery on the left Past Anesthesia/Blood Transfusion Reactions: Motion Sickness Past Psychological History: Anxiety Smoking Status: Never smoker Past Alcohol Use History: Rare Past Drug Use History: None Reported - Past Family History Father Family Medical History: No Reported History Additional Family Medical History / Comment(s): Patient does not know his father. Mother Family Medical History: No Reported History Additional Family Medical History / Comment(s): Mother is alive at age 52 with no major medical problems. Patient has 2 brothers with no major medical problems. Patient does not have any sisters. Patient has one son with no major medical problems. General Exam Limitations: no limitations General appearance: alert, in no apparent distress Head exam: Present: atraumatic, normocephalic, normal inspection Eye exam: Present: normal appearance, PERRL, EOMI. Absent: scleral icterus, conjunctival injection, periorbital swelling ENT exam: Present: normal exam, mucous membranes moist, TM's normal bilaterally, normal external ear exam. Absent: normal oropharynx (patient has poor dentition. Patient has several missing teeth on the right upper side of the mouth. He does not have any dental abscesses with direct visualization or palpation of the gumline. Patient does have some mild swelling to the maxillary area above the right.), other (no sublingual edema. No trismus.) Neck exam: Present: normal inspection, full ROM. Absent: tenderness, meningismus, lymphadenopathy Respiratory exam: Present: normal lung sounds bilaterally. Absent: respiratory distress, wheezes, rales, rhonchi, stridor Cardiovascular Exam: Present: regular rate, normal rhythm, normal heart sounds. Absent: systolic murmur, diastolic murmur, rubs, gallop, clicks GI/Abdominal exam: Present: soft, normal bowel sounds. Absent: distended, tenderness, guarding, rebound, rigid Course Vital Signs 05/28/20 23:10 Temperature 98.6 F Pulse Rate 87 Respiratory 16 Rate Blood Pressure 117/75 O2 Sat by Pulse 97 Oximetry Medical Decision Making - Medical Decision Making patient has been on penicillin for the last few days. Patient will be switched to clindamycin. I did recommend he take Motrin and Tylenol 3 for pain. He requests a prescription for Motrin. he was instructed not to drive or operate machinery while taking Tylenol 3. He follows up with a dentist in [place] and will call tomorrow. He will return here for any worsening symptoms. Disposition Clinical Impression: Pain, dental Disposition: HOME SELF-CARE Condition: Good Instructions (If sedation given, give patient instructions): Toothache (ED) Additional Instructions: please follow-up with your dentist as soon as possible. Take clindamycin instead of penicillin. Apply ice to the area. Take Motrin for pain. If pain is severe take Tylenol [address] operate machinery while taking thi s. Return to the emergency room for any worsening symptoms or if symptoms are not improving in the next 48 hours. Prescriptions: Clindamycin [Cleocin] 450 mg PO Q8H 7 Days #63 cap Ibuprofen [Motrin] 600 mg PO Q8HR PRN #20 tab PRN Reason: Pain Is patient prescribed a controlled substance at d/c from ED?: No Referrals: Martha Montoya MD [REFERRING] - 1-2 days Time of Disposition: 00:07
[2020-05-29 00:17] VITALS: BP 144/74; PULSE 79; RESP 18; TEMP 97.7
== END 2020-05-29 00:16 | disposition home or self-care (01) ==
LOC: EC 23:09
DX: K08.89 Other specified disorders of teeth and supporting structures (principal)
CPT/HCPCS: 99282